=== PATIENT | female | born 1960 | race Caucasian/White ===

== ENCOUNTER 2019-10-21 08:23 | Day surgery (SDC) | payer MEDICAID ==
[2019-10-18 15:01] LABS: BASOPHIL % 0.5 % (0-2); PLATELET COUNT 295 x10^3mcL (130-400); RED CELL DISTRIBUTION WIDTH 13.5 % (11.5-14.5)
[2019-10-18 15:56] LABS: ALBUMIN 3.7 g/dL (3.4-5.0); CARBON DIOXIDE 30.7 mmol/L (21-32); CHLORIDE SERUM 103 mmol/L (98-107); CREATININE SERUM 0.7 mg/dL (0.6-1.0); GFR1 > 60 mL/min; GLUCOSE SERUM 108 mg/dL (74-106); POTASSIUM SERUM 4.1 mmol/L (3.5-5.1); SODIUM SERUM 141 mmol/L (136-145); TOTAL PROTEIN, SERUM 7.6 g/dL (6.4-8.2)
[2019-10-18 15:57] LABS: ALKALINE PHOSPHATASE 152 U/L (46-116); ALT/SGPT 22 U/L (14-59); AST/SGOT 8 U/L (15-37); BILIRUBIN TOTAL 0.49 mg/dL (0.20-1.00); CALCIUM 9.1 mg/dL (8.5-10.1)
[~2019-10-21] VITALS: Ht 160 cm; Wt 71.7 kg
[2019-10-21] VITALS (10 sets, daily range): BP systolic 113–143; BP diastolic 57–79
== END 2019-10-21 23:59 | disposition home or self-care (01) ==
LOC: DS 08:23 → OR 09:00 → DS 12:30 → MU 18:05 → DS 23:59
PROVIDERS: Surgery
DX: C50.912 Malignant neoplasm of unspecified site of left female breast (principal); Z17.0 Estrogen receptor positive status [ER+]; D24.1 Benign neoplasm of right breast
CPT/HCPCS: OPS; 76642; 88329; 88344; 88361; G0378; J0690; J1170; J2001; J2405; J2704; J3010; J3490; J7030; J7120; Q9968